=== PATIENT | female | born 1995 | race Caucasian/White ===

== ENCOUNTER → 2022-09-24 17:18 | Outpatient (BNVA) | payer OTHER, SELFPAY | PROVIDERS: Visit Provider Emergency Medicine | DX: S99.911A Unspecified injury of right ankle, initial encounter (principal); X58.XXXA Exposure to other specified factors, initial encounter | CPT/HCPCS: 73610 ==

== ENCOUNTER → 2023-01-05 10:43 | Outpatient (BNVA) | payer OTHER, SELFPAY | PROVIDERS: Visit Provider Family Medicine Adult Medicine | DX: R35.0 Frequency of micturition (principal); N92.6 Irregular menstruation, unspecified; N80.9 Endometriosis, unspecified; Z87.42 Personal history of other diseases of the female genital tract | CPT/HCPCS: 81000; 81025; 82672; 84144; 84146 ==

== ENCOUNTER → 2023-01-27 09:47 | Outpatient (BNVA) | payer OTHER, SELFPAY | PROVIDERS: Referring Provider Family Medicine Adult Medicine; Visit Provider Obstetrics & Gynecology | DX: N92.6 Irregular menstruation, unspecified (principal) | CPT/HCPCS: 80053; 81025; 84146; 84443; 85025 ==

== ENCOUNTER → 2023-02-18 15:24 | Outpatient (BNVA) | payer SELFPAY | PROVIDERS: Visit Provider Obstetrics & Gynecology | DX: N92.6 Irregular menstruation, unspecified (principal) | CPT/HCPCS: 76830 ==

== ENCOUNTER → 2023-05-11 14:14 | Outpatient (BNVA) | payer OTHER, SELFPAY | PROVIDERS: Visit Provider Obstetrics & Gynecology | DX: Z87.42 Personal history of other diseases of the female genital tract (principal); N92.6 Irregular menstruation, unspecified | CPT/HCPCS: 81025 ==

== ENCOUNTER 2023-05-12 13:03 | Outpatient (CLI) | payer OTHER, SELFPAY ==
--- NOTE | 2023-05-12 09:51 | US_ITS ---
WS: [id number] US pelv w/transvag [id number] HISTORY: R10.2 - Pelvic and perineal pain COMPARISON: None available. Uterus: 8.0 cm x 4.2 cm x 3.5 cm. Normal size anteverted uterus. No fibroid or mass. Endometrium: 0.5 cm. Normal. Right ovary: 3.9 cm x 2.4 cm x 2.3 cm. Normal size and vascularity, no cystic or solid masses. Left ovary: 3.0 cm x 2.4 cm x 3.4 cm. Limited by deep position within the adnexa. Normal size and vas cularity, no cystic or solid masses. Color Doppler is noted but more difficult to obtain due to posit ion of the ovary. No free fluid in the cul-de-sac. IMPRESSION: No acute pelvic abnormalities are identified. LEFT ovary is more difficult to visualize than the RIGH T but it is not enlarged. There is no free fluid.
== END 2023-05-12 13:04 | disposition home or self-care (01) ==
LOC: RAD 13:04
PROVIDERS: Visit Provider Obstetrics & Gynecology
DX: R10.2 Pelvic and perineal pain (principal)
CPT/HCPCS: 76830; 76856